=== PATIENT | female | born 1935 | race African-American/Black ===

== ENCOUNTER 2017-04-02 06:16 | Inpatient (IN) | payer BC ==
[2017-03-31 14:14] VITALS: BMI 25.2
[2017-04-02] MEDS ORDERED: oxyCODONE HCL 10 MG SUSTAINED ACTING TABLET PO STA (06:41)
[2017-04-02] MEDS ORDERED: CEFAZOLIN 1 GM/D5W 1 GM/50 ML BAG IVPB ONE (06:41)
[2017-04-02] MEDS ORDERED: oxyCODONE HCL 10 MG SUSTAINED ACTING TABLET ONE (06:43)
[2017-04-02] MEDS ORDERED: LIDOCAINE 1%/EPI 1:100000 (20 ML MULTI DOSE VIAL) ONE (07:16)
[2017-04-02] MEDS ORDERED: methylPREDNISolone ACET (DEPO) 40 MG/1 ML VIAL ONE (07:17)
[2017-04-02] MEDS ORDERED: DEXAMETHASONE SOD PHOSPHATE/PF 10 MG/ML SDV ONE (07:52)
[2017-04-02] MEDS ORDERED: MIDAZOLAM HCL 2 MG/2 ML SINGLE DOSE VIAL ONE (07:52)
[2017-04-02] MEDS ORDERED: BUPIVACAINE HCL/PF (5 MG/ML) 30 ML VIAL IJ ONE (07:52)
[2017-04-02] MEDS ORDERED: ceFAZolin SODIUM 1 GM VIAL ONE (07:56)
[2017-04-02] MEDS ORDERED: ePHEDrine SULFATE 50 MG/1 ML AMPULE ONE (07:56)
[2017-04-02] MEDS ORDERED: SODIUM CHLORIDE 0.9% P/F 10 ML VIAL IJ ONE (07:57)
--- NOTE | 2017-04-02 08:08 | HP ---
History & Physical Update - History History: No Change - Physical Physical: No Change - Assessment Assessment: No Change - Plan Plan: No Change (Initial H&P is complete and located in patient's paper chart. Low back pain radiationg down both legs (R>L).)
[2017-04-02] MEDS ORDERED: LIDOCAINE 1%/EPI 1:100000 (50 ML MULTI DOSE VIAL) INF ONE (09:00)
[2017-04-02] MEDS ORDERED: ONDANSETRON 4 MG/2 ML VIAL IVPUSH PRN (09:02)
[2017-04-02] MEDS ORDERED: LACTATED RINGERS SOLUTION 1,000 ML IV SCH ×2 (09:15→11:00)
[2017-04-02] MEDS ORDERED: THROMBIN (BOVINE) 5,000 UNIT VIAL TP ONE ×2 (09:20→10:25)
[2017-04-02] MEDS ORDERED: GELATIN SPONGE,ABSORBABLE 1 GM PACKET TP ONE (10:26)
--- NOTE | 2017-04-02 10:44 | OP ---
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
--- NOTE | 2017-04-02 10:44 | SURG ---
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 For further detail, please refer to operative report. Visit type - Case Type Case Type: Scheduled Admission - New patient This patient is new to me today: Yes Date on this admission: 04/02/17
[2017-04-02] MEDS ORDERED: BUDESONIDE/FORMETEROL FUMARATE 160/4.5 mcg INHALER IH PRN (10:45)
[2017-04-02] MEDS ORDERED: oxyCODONE HCL 5 MG TABLET PO PRN ×2 (10:46)
[2017-04-02] MEDS: traMADol HCL 50 MG TABLET PO SCH ×2 (12:00→18:38)
[2017-04-02] MEDS: ACETAMINOPHEN 325 MG TABLET (FP) PO SCH ×2 (12:00→18:38)
[2017-04-02] MEDS: CEFAZOLIN 1 GM/D5W 1 GM/50 ML BAG IVPB SCH (18:39)
[2017-04-02] MEDS ORDERED: PT OWN MED DRAWER 7, Y5N ONE (21:20)
[2017-04-02] MEDS ORDERED: NORTRIPTYLINE HCL 10 MG CAPSULE PO SCH (22:00)
[2017-04-02] MEDS ORDERED: ATORVASTATIN CA 40 MG TABLET (FP) PO SCH (22:00)
[2017-04-02] MEDS ORDERED: diazePAM 2 MG TABLET PO SCH (22:00)
[2017-04-03] MEDS: CEFAZOLIN 1 GM/D5W 1 GM/50 ML BAG IVPB SCH (01:31)
[2017-04-03] MEDS: ACETAMINOPHEN 325 MG TABLET (FP) PO SCH ×2 (05:47→05:55)
[2017-04-03] MEDS: traMADol HCL 50 MG TABLET PO SCH ×3 (05:47→09:29)
[2017-04-03 08:25] LABS: HEMATOCRIT 29.7 % (32.4-45.2); HEMOGLOBIN 9.8 GM/dl (10.7-15.3); MCH 29.4 pg (25.7-33.7); MCHC 32.8 g/dl (32.0-36.0); MEAN CELL VOLUME 89.7 fl (80-96); MEAN PLT VOLUME 9.4 fl (7.5-11.1); PLATELET COUNT 182 K/MM3 (134-434); RBC 3.31 M/mm3 (3.60-5.2); RDW 13.1 % (11.6-15.6); WHITE BLOOD COUNT 9.9 K/mm3 (4.0-10.8)
[2017-04-03 08:30] LABS: ANION GAP 6 (8-16); BLOOD UREA NITROGEN 25 mg/dl (7-18); CALCIUM 9.4 mg/dl (8.4-10.2); CHLORIDE 102 mmol/L (98-107); CO2 28 mmol/L (22-28); GLUCOSE,RANDOM 122 mg/dl (74-106); POTASSIUM 4.1 mmol/L (3.5-5.1); SODIUM 136 mmol/L (136-145)
--- NOTE | 2017-04-03 09:24 | PN ---
Progress Note, Physician Chief Complaint: s/p lumbar fusion under spinal anesthesia History of Present Illness: post op day one - Current Medication List Current Medications: Active Medications Acetaminophen (Tylenol -) 650 mg PO Q6H [facility] Last Admin: 04/03/17 05:55 Dose: 650 mg Allopurinol (Zyloprim -) 100 mg PO DAILY [facility] Atorvastatin Calcium (Lipitor -) 40 mg PO HS [facility] Last Admin: 04/02/17 22:12 Dose: 40 mg Budesonide/Formoterol Fumarate (Symbicort 160/4.5mcg -) 1 puff IH DAILY PRN PRN Reason: ASTHMA Diazepam (Valium -) 2 mg PO BID [facility] Last Admin: 04/02/17 22:12 Dose: 2 mg Hydrochlorothiazide (Hctz -) 12.5 mg PO DAILY [facility] Lactated Ringer's (Lactated Ringers Solution) 1,000 mls @ 125 mls/hr IV ASDIR [facility] Nortriptyline HCl (Pamelor -) 10 mg PO HS [facility] Last Admin: 04/02/17 22:13 Dose: 10 mg Ondansetron HCl (Zofran Injection) 4 mg IVPUSH Q6H PRN PRN Reason: NAUSEA AND/OR VOMITING Oxycodone HCl (Roxicodone -) 5 mg PO Q4H PRN PRN Reason: PAIN Oxycodone HCl (Roxicodone -) 10 mg PO Q4H PRN PRN Reason: MODERATE PAIN Last Admin: 04/02/17 22:11 Dose: 10 mg Tramadol HCl (Ultram -) 50 mg PO Q6H [facility] Last Admin: 04/03/17 05:56 Dose: 50 mg Valsartan (Diovan -) 320 mg PO DAILY [facility] - Objective Vital Signs: Vital Signs Temperature 98.5 F 04/03/17 05:59 Pulse Rate 85 04/03/17 05:59 Respiratory Rate 18 04/03/17 05:59 Blood Pressure 145/73 04/03/17 05:59 O2 Sat by Pulse Oximetry (%) 95 04/03/17 05:59 Constitutional: Yes: Well Nourished Cardiovascular: Yes: WNL Respiratory: Yes: WNL Gastrointestinal: Yes: WNL Labs: CBC, BMP 04/03/17 07:30 04/03/17 07:30 Assessment/Plan No adverse effect of anesthetic, pain controlled, patient ambulating, no nausea or vomiting overnight. Dept of anesthesia will sign off care at this time.
[2017-04-03 09:33] VITALS: BP 144/56; PULSE 80; TEMP 98
--- NOTE | 2017-04-03 09:50 | OP ---
DATE OF OPERATION: 04/02/2017 PREOPERATIVE DIAGNOSES: 1. L4-L5 spinal stenosis. 2. L4-L5 spondylolisthesis. POSTOPERATIVE DIAGNOSES: 1. L4-L5 spinal stenosis. 2. L4-L5 spondylolisthesis. PROCEDURE PERFORMED: 1. Transforaminal lumbar interbody fusion, L4-L5. 2. Placement of instrumentation. 3. Hemilaminectomy, L4-L5. SURGEON: Zach Parra MD BRICK PAVING CHECKER: BEVERLEY Timmons ESTIMATED BLOOD LOSS: 50 mL. INTRAVENOUS FLUIDS Per Anesthesia. COMPLICATIONS: There were none. DISPOSITION: Patient brought to the PACU in stable condition. INDICATIONS FOR SURGERY: The patient is an 81-year-old female who has been suffering from pain from her back down her right leg. X-rays and MRI were completed, which noted that she has spinal stenosis at L4-L5 secondary to a spondylolisthesis. She had gone through an exhaustive course of treatment for this, which included medications, physical therapy, as well as injections. Unfortunately, her pain continued to persist despite all this. At this point, risks, benefits, and alternatives were discussed, and the patient consented to surgery. OPERATIVE NOTE: Patient was brought to the operating room by the Anesthesia staff. After appropriate patient identification was performed, spinal anesthesia was given. A TLIP block was also given. The patient was able to position herself to avoid bony prominences. The C-arm was brought in, and L4 and L5 pedicles were marked off. Her back was prepped and draped in a sterile manner. At this point, a time-out was completed, and incisions were from the top of L4 to the bottom of L5. Dissection was carried down to the fascia. Fascia was then split open at this time. The C-arm was brought in. Under C-arm guidance, the trocars were advanced into both the L4 and L5 pedicles. The trocar wire was inserted. Over the wires, tap was performed and the screws were inserted. On the right-hand side, retractor blades were set up to expose the L4-L5 facet joint. The disc was identified, it was entered. Using a series of pituitary and Kerrison rongeurs and curettes, discectomy was completed. The endplates were decorticated at this time. Curettes were used to decorticate the end-plates. Bone graft was laid down. A size 10 cage filled with bone graft was placed in. Tulip heads were placed over the screws. A rita was measured and placed in the capsule, caps placed on. Compression was applied. On the left-hand -side rita, rita was measured and placed in the capsule, caps placed on. Compression was applied. All extra instrumentation was removed at this time. AP and lateral x-rays confirmed the instrumentation to be in good position. The fascia was closed with a No. 1 Vicryl suture. The subcutaneous tissue was closed with 2-0 Vicryl suture. Skin was closed with 3-0 Monocryl suture. Dermabond was applied. Steri-Strips were applied. Sterile dressings applied. Patient was placed supine on the OR bed and was brought to the PACU in stable condition. Consuelo [id number] MTDD
[2017-04-03] MEDS ORDERED: VALSARTAN 160 MG TABLET (UD) PO SCH (10:00)
[2017-04-03] MEDS ORDERED: PATIENT'S OWN MEDICATION (NON-FORMULARY) (Telmisartan/Hydrochlorothiazid [Micardis Hct 80- PO SCH (10:00)
[2017-04-03] MEDS ORDERED: ALLOPURINOL 100 MG TABLET (FP) PO SCH (10:00)
[2017-04-03] MEDS ORDERED: HYDROCHLOROTHIAZIDE 12.5 MG CAPSULE (FP) PO SCH (10:00)
--- NOTE | 2017-04-03 11:23 | DS ---
Physical Exam: Physical Exam: SUBJECTIVE: Patient seen and examined at bedside (7:30am) POD #1 L4-L5 fusion. Patient states her pain is controlled with oral meds and she has been out of bed ambulating to bathroom without limitation. She denies any radicular symptoms or paresthesias in B/L LE. She denies any c/p, SOB, N/V/D fever or chills, She is prepared to go home today and comfortable with the discharge plan. OBJECTIVE: PHYSICAL EXAM GENERAL: The patient is awake, alert, and fully oriented, in no acute distress. HEAD: Normal with no signs of trauma. EYES: sclera anicteric, conjunctiva clear. ENT: Ears normal, nares patent, NECK: Trachea midline, full range of motion, supple. LUNGS: unlabored resp on RA, no accessory muscle use. Incisions c/d/i with steris in place, no evidence of d/c or tracking erythema. redressed with 4x4 and op site EXTREMITIES: 2+ pulses, warm, well-perfused, no edema, 5/5 strength, compartments soft, supple and non-tender to palpation. NEUROLOGICAL: Cranial nerves II through XII grossly intact. Normal speech PSYCH: Normal mood, normal affect. SKIN: Warm, dry, normal turgor, no rashes or lesions noted. OBJECTIVE: Vital Signs Temperature 98 F 04/03/17 09:00 Pulse Rate 80 04/03/17 09:00 Respiratory Rate 18 04/03/17 09:00 Blood Pressure 144/56 04/03/17 09:00 O2 Sat by Pulse Oximetry (%) 95 04/03/17 09:00 LABS CBC,CMP WBC 9.9 K/mm3 (4.0-10.8) 04/03/17 07:30 RBC 3.31 M/mm3 (3.60-5.2) L 04/03/17 07:30 Hgb 9.8 GM/dl (10.7-15.3) L 04/03/17 07:30 Hct 29.7 % (32.4-45.2) L 04/03/17 07:30 MCV 89.7 fl (80-96) 04/03/17 07:30 MCH 29.4 pg (25.7-33.7) 04/03/17 07:30 MCHC 32.8 g/dl (32.0-36.0) 04/03/17 07:30 RDW 13.1 % (11.6-15.6) 04/03/17 07:30 Plt Count 182 K/MM3 (134-434) 04/03/17 07:30 MPV 9.4 fl (7.5-11.1) 04/03/17 07:30 Sodium 136 mmol/L (136-145) 04/03/17 07:30 Potassium 4.1 mmol/L (3.5-5.1) 04/03/17 07:30 Chloride 102 mmol/L (98-107) 04/03/17 07:30 Carbon Dioxide 28 mmol/L (22-28) 04/03/17 07:30 Anion Gap 6 (8-16) L 04/03/17 07:30 BUN 25 mg/dl (7-18) H 04/03/17 07:30 Creatinine 1.0 mg/dl (0.6-1.3) 04/03/17 07:30 Random Glucose 122 mg/dl (74-106) H 04/03/17 07:30 Calcium 9.4 mg/dl (8.4-10.2) 04/03/17 07:30 HOSPITAL COURSE: normal Date of Admission:04/02/17 Date of Discharge: 04/03/17 The patient was admitted to the Med-Surg Unit after an elective repair of her spinal stenosis. Now, s/p L4-L5. The day of surgery, the patient ambulated the hallways with assistance. Narcotic and non-narcotic pain management control was achieved with an oral and IV approach. An xray was obtained and confirmed hardware placement at L4-L5 level, no fractures or dislocations. Ashley-operative IV ABX were administered. DVT prophylaxis was achieved with SCDs and early ambulation. The patient ambulated with Physical Therapy and no services were recommended upon discharge. Narcotic scripts and or muscle relaxants were checked with [facility] prior to escibe. The discharge instructions and an oral pain management plan were reviewed with the patient. All questions answered. Above plan discussed with Dr. Parra and agreed. Minutes to complete discharge: 10 <Consuelo Mcghee - Last Filed: 04/03/17 11:12> Physical Exam: SUBJECTIVE: Patient seen and examined OBJECTIVE: Vital Signs Temperature 98 F 04/03/17 09:00 Pulse Rate 80 04/03/17 09:00 Respiratory Rate 18 04/03/17 09:00 Blood Pressure 144/56 04/03/17 09:00 O2 Sat by Pulse Oximetry (%) 95 04/03/17 09:00 PHYSICAL EXAM GENERAL: The patient is awake, alert, and fully oriented, in no acute distress. HEAD: Normal with no signs of trauma. EYES: PERRL, extraocular movements intact, sclera anicteric, conjunctiva clear. ENT: Ears normal, nares patent, oropharynx clear without exudates, moist mucous membranes. NECK: Trachea midline, full range of motion, supple. LUNGS: Breath sounds equal, clear to auscultation bilaterally, no wheezes, no crackles, no accessory muscle use. HEART: Regular rate and rhythm, S1, S2 without murmur, rub or gallop. ABDOMEN: Soft, nontender, nondistended, normoactive bowel sounds, no guarding, no rebound, no hepatosplenomegaly, no masses. EXTREMITIES: 2+ pulses, warm, well-perfused, no edema. NEUROLOGICAL: Cranial nerves II through XII grossly intact. Normal speech, gait not observed. PSYCH: Normal mood, normal affect. SKIN: Warm, dry, normal turgor, no rashes or lesions noted. LABS CBC,CMP WBC 9.9 K/mm3 (4.0-10.8) 04/03/17 07:30 RBC 3.31 M/mm3 (3.60-5.2) L 04/03/17 07:30 Hgb 9.8 GM/dl (10.7-15.3) L 04/03/17 07:30 Hct 29.7 % (32.4-45.2) L 04/03/17 07:30 MCV 89.7 fl (80-96) 04/03/17 07:30 MCH 29.4 pg (25.7-33.7) 04/03/17 07:30 MCHC 32.8 g/dl (32.0-36.0) 04/03/17 07:30 RDW 13.1 % (11.6-15.6) 04/03/17 07:30 Plt Count 182 K/MM3 (134-434) 04/03/17 07:30 MPV 9.4 fl (7.5-11.1) 04/03/17 07:30 Sodium 136 mmol/L (136-145) 04/03/17 07:30 Potassium 4.1 mmol/L (3.5-5.1) 04/03/17 07:30 Chloride 102 mmol/L (98-107) 04/03/17 07:30 Carbon Dioxide 28 mmol/L (22-28) 04/03/17 07:30 Anion Gap 6 (8-16) L 04/03/17 07:30 BUN 25 mg/dl (7-18) H 04/03/17 07:30 Creatinine 1.0 mg/dl (0.6-1.3) 04/03/17 07:30 Random Glucose 122 mg/dl (74-106) H 04/03/17 07:30 Calcium 9.4 mg/dl (8.4-10.2) 04/03/17 07:30 HOSPITAL COURSE: Date of Admission:04/02/17 Date of Discharge: 04/16/17 The patient was admitted to the Med-Surg Unit after an elective repair of their L4-5 Spondylolisthesis. The day of surgery, the patient ambulated the hallways with assistance. Narcotic and non-narcotic pain management control was achieved with an oral and IV approach. POD #1, the surgical drain was removed fully intact and without incident. An xray was obtained and confirmed hardware placement at L4-5, no fractures or dislocations. Ashley-operative IV ABX were administered. DVT prophylaxis was achieved with SCDs and early ambulation. The patient ambulated with Physical Therapy and no services were recommended upon discharge. Narcotic scripts and or muscle relaxants were checked with [facility] prior to escibe. The discharge instructions and an oral pain management plan were reviewed with the patient. All questions answered. Above plan discussed with Dr. Parra and agreed. <Zach Parra - Last Filed: 04/16/17 11:35> Visit type - Case Type Case Type: Scheduled Admission - Emergency Emergency Visit: No - New patient This patient is new to me today: Yes Date on this admission: 04/03/17 <Consuelo Mcghee - Last Filed: 04/03/17 11:12>
== END 2017-04-03 10:25 | disposition home or self-care (01) | DRG 460 ==
LOC: FM/S 06:16
PROVIDERS: ADMIT Orthopaedic Surgery Orthopaedic Surgery of the Spine; ATTEND Orthopaedic Surgery Orthopaedic Surgery of the Spine
PROC: 0SB20ZZ Excision of Lumbar Vertebral Disc, Open Approach (ICD-10-PCS; 2017-04-02)
PROC: 0SG00KJ Fusion of Lumbar Vertebral Joint with Nonautologous Tissue Substitute, Posterior Approach, Anterior Column, Open Approach (ICD-10-PCS; 2017-04-02)
PROC: 0SG00AJ Fusion of Lumbar Vertebral Joint with Interbody Fusion Device, Posterior Approach, Anterior Column, Open Approach (ICD-10-PCS; principal; 2017-04-02 08:15)
DX: M43.16 Spondylolisthesis, lumbar region (principal); M48.061 Spinal stenosis, lumbar region without neurogenic claudication; I10 Essential (primary) hypertension; E11.9 Type 2 diabetes mellitus without complications
CPT/HCPCS: 36415; 72100-TC; 76000-TC; 80048; 85027; 94760; 97116-GP; 97161-GP

== ENCOUNTER 2017-07-09 07:54 | Day surgery (SDC) | payer BC ==
[2017-07-09] MEDS ORDERED: GABAPENTIN 300 MG CAPSULE (FP) PO STA (08:12)
[2017-07-09] MEDS ORDERED: oxyCODONE HCL 10 MG SUSTAINED ACTING TABLET PO STA (08:12)
[2017-07-09 08:55] VITALS: BMI 25.6
[2017-07-09] MEDS ORDERED: LIDOCAINE 1%/EPI 1:100000 (20 ML MULTI DOSE VIAL) ONE (11:48)
[2017-07-09] MEDS ORDERED: methylPREDNISolone ACET (DEPO) 40 MG/1 ML VIAL ONE (11:48)
[2017-07-09] MEDS ORDERED: THROMBIN (BOVINE) 5,000 UNIT VIAL TP ONE ×2 (11:48→14:10)
--- NOTE | 2017-07-09 12:01 | HP ---
History & Physical Update - History History: No Change - Physical Physical: No Change - Assessment Assessment: No Change - Plan Plan: No Change (Initial H&P is in patient's paper chart. No new complaints or medications.)
[2017-07-09] MEDS ORDERED: MIDAZOLAM HCL 2 MG/2 ML SINGLE DOSE VIAL ONE ×2 (12:21→13:38)
[2017-07-09] MEDS ORDERED: ceFAZolin SODIUM 1 GM VIAL ONE (13:01)
[2017-07-09] MEDS ORDERED: MINERAL OIL/PETROLATUM,WHITE 3.5 GM TUBE ONE (13:03)
[2017-07-09] MEDS ORDERED: LIDOCAINE 1%/EPI 1:100000 (20 ML MULTI DOSE VIAL) IJ ONE (13:08)
[2017-07-09] MEDS ORDERED: methylPREDNISolone ACET (DEPO) 40 MG/1 ML VIAL IM ONE (14:25)
[2017-07-09] MEDS ORDERED: BUPIVACAINE HCL 0.25% 125 MG/50 ML VIAL ONE (14:30)
--- NOTE | 2017-07-09 14:56 | OP ---
Operative Note - Note: Operative Date: 07/09/17 Pre-Operative Diagnosis: Lumbar stenosis with radiculopathy Operation: L4/S1 laminectomy (bilateral) Post-Operative Diagnosis: Same as Pre-op Surgeon: Zach Parra Log Inspector: Olvin Irwin Anesthesiologist/RATE QUOTING OPERATOR: Danilo Lau Anesthesia: Spinal Estimated Blood Loss (mls): 15 Fluid Volume Replaced (mls): 800 Operative Report Dictated: Yes
[2017-07-09] MEDS ORDERED: ONDANSETRON 4 MG/2 ML VIAL IVPUSH PRN (14:59)
[2017-07-09] MEDS ORDERED: oxyCODONE HCL 5 MG TABLET PO PRN ×2 (14:59)
[2017-07-09] MEDS ORDERED: ACETAMINOPHEN 1000 MG/100 ML VIAL (NON FORMULARY) IVPB PRN (14:59)
--- NOTE | 2017-07-09 14:59 | SURG ---
Surgery Communications Equipment Supervisor Note Communications Equipment Supervisor: Olvin Irwin PA-C Date of Service: 07/09/17 Diagnosis: lumbar stenosis with radiculopathy Procedure: L4/S1 laminectomy (bilateral) I was present for the entirety of the operative procedure. For further detail, please refer to operative report. Visit type - Case Type Case Type: Scheduled Admission - New patient This patient is new to me today: Yes Date on this admission: 07/09/17
[2017-07-09] MEDS ORDERED: LACTATED RINGERS SOLUTION 1,000 ML IV SCH (15:00)
[2017-07-09] MEDS ORDERED: BUDESONIDE/FORMETEROL FUMARATE 160/4.5 mcg INHALER IH PRN (15:03)
[2017-07-09] MEDS ORDERED: ONDANSETRON 4 MG/2 ML VIAL ONE (15:18)
--- NOTE | 2017-07-09 16:00 | OP ---
DATE OF OPERATION: 07/09/2017 PREOPERATIVE DIAGNOSIS: Spinal stenosis, L3-L5. POSTOPERATIVE DIAGNOSIS: Spinal stenosis, L3-L5. PROCEDURE PERFORMED: Laminectomy, L3-4, L4-5. SURGEON: Zach Parra M.D. VOLUNTEER FIREFIGHTER: Gordon Timmons ESTIMATED BLOOD LOSS: 50 mL INTRAVENOUS FLUIDS: Per anesthesia. ANESTHESIA: Spinal. COMPLICATIONS: There were none. DISPOSITION: Patient brought to the PACU in stable condition. INDICATION FOR SURGERY: The patient is an 81-year-old female who I had done a lumbar fusion on. She had sone well but then developed aches and pain from her back down her leg. X-rays and MRI showed that she had spinal stenosis at L3-4 and L4-5. I discussed the MRI findings with the patient and told the patient that I recommended surgery to prevent any further pain. We discussed multiple different treatment options including trying another epidural injection. The risks, benefits, and alternatives were discussed and the patient consented to surgery. OPERATIVE NOTE: Patient is brought to the operating room by the anesthesia staff. After appropriate patient identification is performed, spinal anesthesia was given. Appropriate SCDs were placed on the patient. The patient was able to position herself prone onto the OR table. Two needles were placed into her back to brooke off the L3 to L5 segments, and x-ray is taken to confirm this is correct. Huggins were removed, and 10 mL of lidocaine with epinephrine was injected into her back at this time. Her back was prepped and draped in a sterile manner. At this point timeout was completed. An incision was made from the top of L3 down to the bottom of L5. Dissection was carried down to the fascia. Fascia was then split open at this time, and appropriate retractors were then placed in. Then a spinal needle was placed onto the L3 lamina to brooke off the L3-4 level. An x-ray was taken to confirm this was correct. The needle was removed, and microscope was brought in. The interspinous ligament at L3-4 and L4-5 was removed. The spinous process at L4 was removed. The lamina at L4 was removed. A complete decompression was performed such that by the end of the procedure the L4 and L5 nerve roots appear to be well decompressed. All bleeding was well controlled at this time. Steroids were placed over the nerve root, Floseal was placed over that. The fascia was closed with a number 1 Vicryl suture. The subcutaneous tissue was closed with 2-0 Vicryl suture. Skin was closed with 3-0 Monocryl suture. Dermabond was applied. Steri-Strips were applied. Sterile dressing was applied. Patient was placed supine on OR bed, and brought to the PACU in stable condition. Consuelo PLUMMER/[id number]
[2017-07-09] MEDS ORDERED: PT OWN MED DRAWER 7, Y5N ONE (21:47)
[2017-07-09] MEDS: ACETAMINOPHEN 325 MG TABLET (FP) PO SCH (21:51)
[2017-07-09] MEDS ORDERED: NORTRIPTYLINE HCL 10 MG CAPSULE PO SCH (22:00)
[2017-07-09] MEDS ORDERED: GABAPENTIN 300 MG CAPSULE (FP) PO SCH (22:00)
[2017-07-09] MEDS ORDERED: ATORVASTATIN CA 40 MG TABLET (FP) PO SCH (22:00)
[2017-07-10] MEDS: traMADol HCL 50 MG TABLET PO SCH ×4 (00:05→12:50)
[2017-07-10] MEDS: ACETAMINOPHEN 325 MG TABLET (FP) PO SCH ×3 (05:45→10:19)
--- NOTE | 2017-07-10 07:50 | DS ---
"Physical Exam: SUBJECTIVE: Patient seen and examined at bedside POD #1 L3-L5 laminectomies. Patient states she is having some incisional pain and L sided paraveterbral pain with movement but minimal radicular pain down Left LE. She has been up to the bedside commode and ambulated with PT. She denies any CP, SOB, N,V Fever or chills OBJECTIVE: Vital Signs Temp 98.7 F 07/10/17 05:35 Pulse 69 07/10/17 05:35 Resp 18 07/10/17 05:35 BP 119/51 07/10/17 05:35 Pulse Ox 100 07/09/17 22:00 Intake & Output 07/09/1707/10/07/10/17 23:59 11:59 23:59 Intake Total 300 Balance 300 Intake: IV 300 Other: Voiding Method Bedside Commode Vital Signs Period Temp Pulse Resp BP Sys/Guaman Pulse Ox Last 24 Hr 97.8 F-98.7 F 61-82 15-18 119-173/51-87 94-100 PHYSICAL EXAM GENERAL: The patient is awake, alert, and fully oriented, in no acute distress. HEAD: Normal with no signs of trauma. EYES: xtraocular movements intact, sclera anicteric, conjunctiva clear. NECK: Trachea midline, full range of motion, supple. LUNGS: unlabored resp on RA, no accessory muscle use. L-spine- dressing saturated with SS d/c, steris in place with no active drainage. Focal edema and ttp over proximal incision site but no evidence of collection. no tracking erythema. Area redressed with pressure dressing (no signs of d/c with completely dry dressing hours later) EXTREMITIES: 2+ pulses, warm, well-perfused, no edema. 5/5 dorsi/plantar flexion b/l LE NEUROLOGICAL: Normal speech, gait not observed. PSYCH: Normal mood, normal affect. SKIN: Warm, dry, normal turgor LABS Laboratory Results - last 24 hr 07/09/17 07/09/17 07/09/17 15:01 15:32 22:12 POC Glucometer 64 92 155 07/10/17 07:06 POC Glucometer 128 HOSPITAL COURSE: The patient was admitted to the Med-Surg Unit after an elective repair of their lumbar stenosis. Now, s/p L3-L5 lumbar laminectomies. The day of surgery, the patient ambulated to the bedside commode with assistance. Narcotic and non-narcotic pain management control was achieved with an oral and IV approach. Ashley-operative IV ABX were administered. DVT prophylaxis was achieved with SCDs and early ambulation. The patient ambulated with Physical Therapy and no services were recommended upon discharge as patient is already set up for in home PT. The discharge instructions and an oral pain management plan were reviewed with the patient. All questions answered. Above plan discussed with Dr. Parra and agreed. Date of Admission:07/09/17-(23 hour) Date of Discharge: 07/10/17 Minutes to complete discharge: 25 Discharge Summary Reason For Visit: SPINAL STENOSIS Condition: Stable - Instructions Diet, Activity, Other Instructions: Dr. Parra's Discharge Instructions Regular diet as tolerated. No bending and or twisting at the waist. No lifting greater than 5 pounds. Follow-up with your surgeon in two weeks. Keep area clean and dry. May remove dressing in two (2) days and replace with clean gauze and occlusive dressing such as a tegaderm. NO BATHS. You may shower starting two (2) days after your surgery. When showering, leave the occlusive(plastic) dressing in place and change if it appears wet. Avoid direct water stream onto your incision. If you develop fever, drainage from your incision please call your surgeon. [facility] Report requested by BEVERLEY Timmons | Reference #: [id number] Follow-up Referred to following clinics/specialists for follow-up care: Zach Parra MD [facility]/[address], [facility] [address] [phone] Disposition: HOME - Home Medications Comprehensive Discharge Medication List: Ambulatory Orders Allopurinol [Zyloprim -] 100 mg PO DAILY 03/31/17 Atorvastatin Ca [Lipitor] 40 mg PO HS 03/31/17 Budesonide/Formeterol Fumarate [SYMBICORT 160/4.5mcg -] 1 inh PO DAILY PRN 03/31 Nortriptyline HCl [Pamelor -] 10 mg PO HS 03/31/17 Telmisartan/Hydrochlorothiazid [Micardis Hct 80-12.5 mg Tablet] 1 each PO DAILY 03/31/17 Gabapentin 300 mg PO HS 07/07/17 Tramadol HCl 50 mg PO TID PRN 07/07/17 Tramadol HCl 50 mg PO Q6H PRN #20 tablet MDD 4 07/10/17 Problem List - Problems (1) Lumbar stenosis Assessment/Plan: POD # miltilevel laminectomies doing well Plan: 1) d/c home with in home PT as discussed 2) no lifting or carrying 3) follow up as out patient- see discharge instructions Code(s): M48.061 - SPINAL STENOSIS, LUMBAR REGION WITHOUT NEUROGENIC NAT This patient is new to me today: Yes Date on this admission: 07/10/17 Emergency Visit: No Critical Care patient: No - Discharge Referral Referred to [facility] No"
--- NOTE | 2017-07-10 09:24 | PN ---
Progress Note (short form) - Note Progress Note: Anesthesia Post op Pt seen and examined S:alert and awake mild pain O; Vital Signs Temperature 98.7 F 07/10/17 05:35 Pulse Rate 69 07/10/17 05:35 Respiratory Rate 18 07/10/17 05:35 Blood Pressure 119/51 07/10/17 05:35 O2 Sat by Pulse Oximetry (%) 100 07/09/17 22:00 A/P s/p lumbar laminectomy Doing well post op Continue current care Mata Cook MD
[2017-07-10] MEDS ORDERED: PATIENT'S OWN MEDICATION (NON-FORMULARY) (Telmisartan/Hydrochlorothiazid [Micardis Hct 80- PO SCH (10:00)
[2017-07-10] MEDS ORDERED: HYDROCHLOROTHIAZIDE 12.5 MG CAPSULE (FP) PO SCH (10:00)
[2017-07-10] MEDS ORDERED: ALLOPURINOL 100 MG TABLET (FP) PO SCH (10:00)
[2017-07-10] MEDS ORDERED: VALSARTAN 160 MG TABLET (UD) PO SCH (10:00)
[2017-07-10 14:19] VITALS: BP 124/68; PULSE 80; TEMP 98.4
== END 2017-07-10 15:12 | disposition home or self-care (01) ==
LOC: FASU 07:54 → FM/S 16:39 → FASU 07-10 15:12
PROVIDERS: ATTEND Orthopaedic Surgery Orthopaedic Surgery of the Spine
PROC: 01NB0ZZ Release Lumbar Nerve, Open Approach (ICD-10-PCS; principal; 2017-07-09 13:18)
DX: M48.061 Spinal stenosis, lumbar region without neurogenic claudication (principal)
CPT/HCPCS: 72100-TC-FY; 76000-TC-FY; 82962; 94760; 97116-GP; 97161-GP; J0131

== ENCOUNTER 2021-09-11 11:51 | Emergency (ER) | payer OTHER ==
[2021-09-11 11:59] VITALS: BP 184/85; PULSE 75; TEMP 97.3; BMI 27.3
[2021-09-11] MEDS ORDERED: ACETAMINOPHEN 500 MG TABLET (FP) PO ONE (13:18)
[2021-09-11] MEDS ORDERED: ACETAMINOPHEN 325 MG TABLET (FP) ONE (13:25)
[2021-09-11 14:43] LABS: BASO % 0.3 % (0-2.0); EOS % 0.2 % (0-4.5); HEMATOCRIT 35.2 % (32.4-45.2); HEMOGLOBIN 11.6 GM/dL (10.7-15.3); LYMPH % 32.2 % (8-40); MCH 29.9 pg (25.7-33.7); MEAN CELL VOLUME 90.5 fl (80-96); MEAN PLT VOLUME 8.8 fl (7.5-11.1); MONO % 9.1 % (3.8-10.2); NEUT % 58.2 % (42.8-82.8); PLATELET COUNT 196 10^3/uL (134-434); RBC 3.89 M/mm3 (3.60-5.2); RDW 13.2 % (11.6-15.6); WHITE BLOOD COUNT 4.3 K/mm3 (4.0-10.0)
[2021-09-11 15:14] LABS: ALBUMIN 3.9 g/dl (3.4-5.0); BLOOD UREA NITROGEN 30.1 mg/dL (7-18)
[2021-09-11 15:17] LABS: CREATININE 1.3 mg/dL (0.55-1.3)
[2021-09-11 15:18] LABS: BILIRUBIN,TOTAL 0.5 mg/dL (0.2-1); TOT PROT 8.3 g/dl (6.4-8.2)
[2021-09-11] MEDS ORDERED: IBUPROFEN 600 MG TABLET (FP) PO ONE (15:27)
[2021-09-11 20:45] LABS: URIC ACID 6.8 mg/dL (2.6-7.2)
== END 2021-09-11 16:45 | disposition home or self-care (01) ==
LOC: JER 11:51
DX: M10.071 Idiopathic gout, right ankle and foot (principal)
CPT/HCPCS: 36415; 73610-TC-RT-FY; 73630-TC-RT-FY; 80053; 84550; 85025; 93005; 93010; 99285-25